=== PATIENT | male | born 1965 | race Caucasian/White ===

== ENCOUNTER 2017-09-14 14:29 | Outpatient (CLI) ==
[2013-04-12 22:57] VITALS: TEMP 96.8
[2016-04-23 19:52] VITALS: BMI 38.0
--- NOTE | 2017-09-14 14:51 | DI ---
EXAM: Two views of the chest. History: Short of breath Comparison: Chest radiograph 01/24/2014 Findings: Heart size is normal. No focal consolidation. No appreciable pleural fluid and no pneumo thorax. No acute osseous abnormalities. Impression: No acute cardiopulmonary process
== END 2017-09-14 14:30 | disposition home or self-care (01) ==
LOC: RAD 14:29
PROVIDERS: ATTEND Family Medicine
DX: R06.02 Shortness of breath (principal)

== ENCOUNTER 2017-12-09 19:23 | Emergency (ER) ==
[2017-12-09] MEDS ORDERED: XOPENEX 1.25 MG NEB STA (19:26)
[2017-12-09 19:35] VITALS: TEMP 97.7; BMI 38.9
[2017-12-09 19:41] VITALS: BP 164/103
--- NOTE | 2017-12-09 21:13 | CT ---
EXAM: CT scan head without contrast. HISTORY: Dizziness COMPARISON: CT, 09/30/2013 TECHNIQUE: Axial scans acquired 5 mm slice thicknesses. FINDINGS: There is no subdural hematoma or intracranial hemorrhage seen. There is no shift of midli ne structures. Nickerson-white matter differentiation is maintained. Ventricles are normal in size. The mastoid air cells appear clear. Mucous retention cyst less likely polyp measuring 1.02 cm periphery left maxillary sinus. IMPRESSION: . No acute intracranial finding is seen No intracranial hemorrhage, CVA, mass or hydrocephalus is seen.
--- NOTE | 2017-12-09 21:14 | CT ---
EXAM: CTA chest for PE HISTORY: Dyspnea with cough and chest pain COMPARISON: Multiple chest x-rays most recent 09/14/2017 TECHNIQUE: CTA of the chest was performed from the lung apices to the upper abdomen after 100 ml of Omnipaque IV contrast was administered using PE protocol. 3-D imaging was also provided. FINDINGS: Poor bolus timing limits this evaluation. There is no central filling defect in the pulmo nary arteries to the proximal segmental level. The distal pulmonary arteries are not well opacified. The aorta is unremarkable. The heart is unremarkable with no pericardial fluid. There are no enla rged mediastinal or hilar lymph nodes. The thyroid is normal. There is no pneumothorax or pleural effusion. There is no consolidation, nodule or mass. The airway s are patent. There is minimal right basilar atelectasis. Limited views of the soft tissues in the upper abdomen are unremarkable. The osseous structures demo nstrate degenerative disease of the spine. IMPRESSION: 1. Limited evaluation due to poor bolus timing with no central pulmonary embolism. 2. No acute consolidation or cardiopulmonary process.
--- NOTE | 2017-12-09 21:24 | ED.PDOC ---
General ED Provider: Dr. RIGO MERCADO-ER Chief Complaint: Shortness of Air Stated Complaint: im coughing and sob Time Seen by Physician: 21:23 Mode of Arrival: Walk-In Information Source: Patient Exam Limitations: No limitations Primary Care Provider: RIGO MERCADO Nursing and Triage Documentation Reviewed and Agree: Yes Reviewed sepsis parameters & appropriate labs ordered?: Yes System Inflammatory Response Syndrome: Not Applicable Sepsis Protocol: For patient's 13 years and over: Temp is 96.8 and below OR 101 and greater Pulse >90 BPM Resp >20/minute Acutely Altered Mental Status Are patient's symptoms suggestive of a new infection, such as: -Pneumonia -Skin, Soft Tissue -Endocarditis -UTI -Bone, Joint Infection -Implantable Device -Acute Abdominal Infection -Wound Infection -Meningitis -Blood Stream Catheter Infection -Unknown Respiratory Complaint Exam - Respiratory Complaint/Exam Onset/Duration: 2 days Symptoms Are: Still present Timing: Intermittent Initial Severity: Mild Current Severity: Mild Character: Reports: Non-productive cough Aggravating: Reports: URI, Passive smoke exposure Alleviating: Reports: Bronchodilators Associated Signs and Symptoms: Reports: Dyspnea, URI, Nasal congestion. Denies : Rapid breathing, Fever, Chills, Chest pain, Pleuritic chest pain, Wheezing, Hemoptysis, Dizziness, Calf pain, Calf swelling, Edema, Hoarseness, Sinus discomfort, Vomiting, Sore throat, Weight loss, Decreased oral intake, Increased thirst, Increased appetite, Increased urination Related History: Reports: Similar episode History of Healthcare-Acquired Pneumonia: No Related Surgical History: Reports: None Pulmonary Embolism Risk Factors: None Cardiac Risk Factors: Reports: Smoking Pseudomonas Risk Factors: Reports: Chronic Lung Disease Home Oxygen Use: No Recent Stress Test: No Recent Echo/LV Function: No Current Antibiotic Use: No Current Asthma Medication Use: No Respiratory Distress: None Inadequate Respiratory Effort: No Dysphagia Present: No Stridor Present: No JVD Present: No Accessory Muscle Use: No Diminished Breath Sounds: No Sinus Tenderness: None Grunting Respirations: No Kussmaul Respirations: No Differential Diagnoses: COPD Exacerbation Review of Systems - Review Of Systems Constitutional: Reports: No symptoms Eyes: Reports: No symptoms Ears, Nose, Mouth, Throat: Reports: No symptoms Respiratory: Reports: Cough, Short of air Cardiac: Reports: No symptoms GI: Reports: No symptoms : Reports: No symptoms Musculoskeletal: Reports: No symptoms Skin: Reports: No symptoms Neurological: Reports: No symptoms Endocrine: Reports: No symptoms Hematologic/Lymphatic: Reports: No symptoms All Other Systems: Reviewed and Negative Past Medical History - Past Medical History Previously Healthy: Yes Endocrine: Reports: None Cardiovascular: Reports: None Respiratory: Reports: None Hematological: Reports: None Gastrointestinal: Reports: None Genitourinary: Reports: None Neuro/Psych: Reports: Bipolar Disorder Musculoskeletal: Reports: Arthritis, Joint Pain Cancer: Reports: None - Surgical History General Surgical History: Reports: Unknown (rt knee replacement) - Family History Family History: Reports: Unknown - Social History Smoking Status: Current every day smoker, Light tobacco smoker, Dips snuff Hx Substance Use: Yes (carol ann) Alcohol Screening: Occasionally - Immunizations Tetanus Shot up to Date: Yes Physical Exam - Physical Exam Appearance: Well-appearing, No pain distress, Well-nourished Eyes: JORGE LUIS, EOMI, Conjunctiva clear ENT: Ears normal, Nose normal, Oropharynx normal Neck: Supple Respiratory: Breath sounds equal, Wheezes Cardiovascular: RRR GI/: Soft, Nontender, No masses, Bowel sounds normal, No Organomegaly Musculoskeletal: Normal strength, ROM intact, No edema, No calf tenderness Skin: Warm, Dry, Normal color Neurological: Sensation intact, Motor intact, Reflexes intact, Cranial nerves intact, Alert, Oriented Psychiatric: Affect appropriate, Mood appropriate, Anxious Interpretation - Radiology Interpretation Radiology Interpretation By: Radiologist Radiology Results: Negative Exam Interpreted: CT Scan - EKG Interpretation Time of EKG #1: 21:25 Rate: Normal Rhythm: Sinus Ectopy: None [place]: NL ST Segment: Normal Re-Evaluation - Re-Evaluation Time of Re-Evaluation: 21:25 Status: Improved Vital Signs Stable: Yes Pain Level: 0 Appearance: NAD Lungs: Clear Skin: Warm and Dry Neuro: Alert and Oriented X3 CV: RRR Critical Care Note - Critical Care Note Total Time (mins): 0 Course - Course Hematology/Chemistry: 12/09/17 19:36 12/09/17 19:36 Orders, Labs, Meds: Lab Review 12/09/1718 12/09/17 19:23 19:36 19:36 WBC 7.38 RBC 4.96 Hgb 15.2 Hct 43.9 MCV 88.5 MCH 30.6 MCHC 34.6 RDW Coeff of Kamila 13.6 Plt Count 247 Immature Gran % (Auto) 0.3 Neut % (Auto) 65.5 Lymph % (Auto) 26.6 [place] % (Auto) 4.9 Eos % (Auto) 1.8 Baso % (Auto) 0.9 Immature Gran # (Auto) 0.0 Neut # 4.8 Lymph # 2.0 Placer # 0.4 Eos # 0.1 Baso # 0.1 Puncture Site Lr O2 Saturation 99.0 ABG pH 7.557 H* ABG pCO2 23.2 L ABG pO2 112.0 H ABG HCO3 20.6 L ABG Total CO2 21 L ABG Base Excess -2 Brent Test + FiO2 % 21.0 Sodium 137 Potassium 3.3 L Chloride 103 Carbon Dioxide 24 Anion Gap 13.3 BUN 3 L Creatinine 1.04 Estimated GFR (MDRD) 75.00 BUN/Creatinine Ratio 2.88 Glucose 134 H Calcium 9.0 Total Bilirubin 0.6 AST 17 ALT 22 Alkaline Phosphatase 99 Total Creatine Kinase 76 Troponin I 0.0170 Total Protein 7.2 Albumin 3.3 L Globulin 3.9 Albumin/Globulin Ratio 0.85 Orders Category Date Time Status ABG DRAW REQUEST Stat CARDIO 12/09/17 19:24 Ordered EKG-(ED ONLY) Stat CARDIO 12/09/17 19:24 Ordered NEBULIZER TREATMENT Stat CARDIO 12/09/17 19:26 Ordered NPO REMINDER: IMAGING ONCE CARE 12/09/17 19:25 Completed 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] .ONCE EMERGENCY 12/09/17 19:26 Active ED IV/MEDIPORT/POWERPORT .ONCE EMERGENCY 12/09/17 19:24 Active ABG Stat LAB 12/09/17 19:23 Completed CBC W/ AUTO DIFF Stat LAB 12/09/17 19:36 Completed COMPREHENSIVE METABOLIC PANEL Stat LAB 12/09/17 19:36 Completed CREATINE KINASE Stat LAB 12/09/17 19:36 Completed TROPONIN I Stat LAB 12/09/17 19:36 Completed 0.9 % Sodium Chloride [Saline Flush] MEDS 12/09/17 19:24 Ordered 1 syr IVF PRN PRN Levalbuterol HCl [Xopenex 1.25 mg] MEDS 12/09/17 19:26 Discontinued 1 vial NEB ONCE STA CT CHEST PE PROTOCOL Stat RADS 12/09/17 19:[address] HEAD W/O CONTRAST Stat RADS 12/09/17 19:24 Completed Medications Generic Name Dose Route Start Last Admin Trade Name Freq PRN Reason Stop Dose Admin Sodium Chloride 1 syr 12/09/17 19:24 12/09/17 20:15 Saline Flush IVF 1 syr PRN PRN Administration To flush IV Discontinued Medications Generic Name Dose Route Start Last Admin Trade Name Freq PRN Reason Stop Dose Admin Levalbuterol HCl 1 vial 12/09/17 19:26 Xopenex 1.25 Mg NEB 12/09/17 19:27 ONCE STA Vital Signs: Temp Pulse Resp BP Pulse Ox 12/09/17 19:40 25 H 164/103 H 99 12/09/17 19:28 97.7 F 67 32 H 169/94 H 100 Departure - Departure Time of Disposition: 21:26 Disposition: HOME SELF-CARE Discharge Problem: COPD exacerbation Instructions: COPD (Chronic Obstructive Pulmonary Disease) (ED), How to Stop Smoking (ED) Condition: Good Pt referred to PMD for follow-up: Yes IPMP verified?: No Additional Instructions: lashonda barkley --stop smoking--f/u with me next week Allergies/Adverse Reactions: Allergies No Known Drug Allergies Adverse Reaction (Verified 12/09/17 19:40) Home Medications: Ambulatory Orders Citalopram Hydrobromide [Celexa] 20 mg PO BEDTIME #30 04/09/17 Albuterol Sulfate [Ventolin Hfa] 18 gm IH DIRECTED PRN 12/09/17 Budesonide/Formoterol Fumarate [Symbicort 160-4.5 Mcg Inhaler] 2 puff IH BID Methylprednisolone [Medrol Dosepak] 4 mg PO DIRECTED 12/09/17 Disposition Discussed With: Patient, Family
== END 2017-12-09 21:34 | disposition home or self-care (01) ==
LOC: ED 19:23
DX: J44.1 Chronic obstructive pulmonary disease with (acute) exacerbation (principal); F17.210 Nicotine dependence, cigarettes, uncomplicated; R06.02 Shortness of breath
CPT/HCPCS: 36415; 80053; 82550; 82803; 84484; 85025; 93005; 93010; 94640; 99283

== ENCOUNTER 2018-06-14 14:30 | Emergency (ER) | payer OTHER ==
[2018-06-14 14:37] VITALS: TEMP 97.8; BMI 39.9
[2018-06-14] MEDS ORDERED: ZESTRIL PO STA ×3 (15:10→18:30)
[2018-06-14] MEDS ORDERED: CARDENE-NACL 20 MG/200 ML SOLN 20 MG in PREMIX 200ML 0.86% SODIUM CHLORIDE 1 BAG IV SCH (18:30)
--- NOTE | 2018-06-14 18:33 | ED.PDOC ---
General Stated Complaint: hypertension Time Seen by Physician: 14:31 (pt's blood pressure qas 180/100 prior to arrival) Mode of Arrival: Walk-In Information Source: Patient Referred to ED by: Other (the pt has denied chest pain through out the day and arrived pain free ) Nursing and Triage Documentation Reviewed and Agree: Yes Does patient meet sepsis criteria?: No If yes, has appropriate treatment been initiated?: No System Inflammatory Response Syndrome: Not Applicable <JOSEY JARA - Last Filed: 06/14/18 18:35> <KRISTOPHER TAYLOR - Last Filed: 06/14/18 19:21> ED Provider: Dr. KRISTOPHER TAYLOR Chief Complaint: Hypertension Primary Care Provider: RIGO MERCADO Sepsis Protocol: For patient's 13 years and over: Temp is 96.8 and below OR 101 and greater Pulse >90 BPM Resp >20/minute Acutely Altered Mental Status Are patient's symptoms suggestive of a new infection, such as: -Pneumonia -Skin, Soft Tissue -Endocarditis -UTI -Bone, Joint Infection -Implantable Device -Acute Abdominal Infection -Wound Infection -Meningitis -Blood Stream Catheter Infection -Unknown Cardiovascular Complaint Exam - Hypertension Complaint/Exam Onset/Duration: today Symptoms Are: Still present Timing: Constant Reported B/P Prior to Arrival: 180/110 no chest pain no shortness of breath Aggravating: Reports: None Alleviating: Reports: None Associated Signs and Symptoms: Reports: Headache. Denies: Chest pain, Vision changes, Anxiety, Recent stress, Numbness, Tingling, Weakness, Dizziness, Short of air, Swelling Related History: Reports: Similar episode Related Surgical History: Reports: None Cardiac Risk Factors: Reports: None Recent Change in Medications: No A/V [place]: No Papilledema Present: No JVD Present: No Carotid Bruit Present: No Femoral Pulses Bounding: No Differential Diagnoses: Hypertension, Hypertensive Urgency Quality Indicator For Non-Traumatic Chest Pain/Syncope: EKG Performed <JOSEY JARA - Last Filed: 06/14/18 18:35> Review of Systems - Review Of Systems Constitutional: Reports: No symptoms Eyes: Reports: No symptoms Ears, Nose, Mouth, Throat: Reports: No symptoms Respiratory: Reports: No symptoms Cardiac: Reports: No symptoms GI: Reports: No symptoms : Reports: No symptoms Musculoskeletal: Reports: No symptoms Skin: Reports: No symptoms Neurological: Reports: Headache Endocrine: Reports: No symptoms Hematologic/Lymphatic: Reports: No symptoms All Other Systems: Reviewed and Negative <JOSEY JARA Last Filed: 06/14/18 18:35> Past Medical History - Past Medical History Previously Healthy: Yes Endocrine: Reports: None Cardiovascular: Reports: None Respiratory: Reports: None Hematological: Reports: None Gastrointestinal: Reports: None Genitourinary: Reports: None Neuro/Psych: Reports: Bipolar Disorder Musculoskeletal: Reports: Arthritis, Joint Pain Cancer: Reports: None - Surgical History General Surgical History: Reports: Unknown (rt knee replacement) - Family History Family History: Reports: Unknown - Social History Smoking Status: Current some day smoker, Light tobacco smoker, Dips snuff Hx Substance Use: Yes (carol ann) Alcohol Screening: None <JOSEY JARA Last Filed: 06/14/18 18:35> Physical Exam - Physical Exam Appearance: Well-appearing, No pain distress, Well-nourished Eyes: JORGE LUIS, EOMI, Conjunctiva clear ENT: Ears normal, Nose normal, Oropharynx normal Respiratory: Airway patent, Breath sounds clear, Breath sounds equal, Respirations nonlabored Cardiovascular: RRR, Pulses normal, No rub, No murmur GI/: Soft, Nontender, No masses, Bowel sounds normal, No Organomegaly Musculoskeletal: Normal strength, ROM intact, No edema, No calf tenderness Skin: Warm, Dry, Normal color Neurological: Sensation intact, Motor intact, Reflexes intact, Cranial nerves intact, Alert, Oriented Psychiatric: Affect appropriate, Mood appropriate <JOSEY JARA Last Filed: 06/14/18 18:35> Interpretation - Fun House Operator Rate: Roly Rhythm: Sinus - EKG Interpretation Rate: Roly Rhythm: Sinus Ectopy: None [place]: NL ST Segment: Normal <JOSEY JARA Last Filed: 06/14/18 18:35> Re-Evaluation - Re-Evaluation Time of Re-Evaluation: 16:00 Status: Unchanged Vital Signs Stable: Yes Pain Level: 0 Appearance: NAD Lungs: Clear Skin: Warm and Dry Neuro: Alert and Oriented X3 CV: RRR - Re-Evaluation Time of Re-Evaluation: 18:35 (160-170/108) Status: Improved Vital Signs Stable: Yes Pain Level: 0 Appearance: NAD Skin: Warm and Dry Neuro: Alert and Oriented X3 CV: RRR (HAS REMAINED FREE OF CHEST PAIN NO ACUTE EVENT) <JOSEY JARA - Last Filed: 06/14/18 18:35> Physician Notification - Case Discussed Physician Notified: henrry SCHULTZ Time of Notification: 19:00 <JOSEY JARA - Last Filed: 06/14/18 18:35> Critical Care Note - Critical Care Note Total Time (mins): 0 <JOSEY JARA - Last Filed: 06/14/18 18:35> Course - Course Hematology/Chemistry: 06/14/18 15:13 06/14/18 15:13 <JOSEY JARA - Last Filed: 06/14/18 18:35> - Course Hematology/Chemistry: 06/14/18 15:13 06/14/18 15:13 <KRISTOPHER TAYLOR - Last Filed: 06/14/18 19:21> - Course Orders, Labs, Meds: Lab Review 06/14/18 06/14/18 06/14/18 15:13 15:13 15:13 WBC 5.71 RBC 4.57 L Hgb 14.2 Hct 41.5 L MCV 90.8 MCH 31.1 H MCHC 34.2 RDW Coeff of Kamila 13.2 Plt Count 217 Immature Gran % (Auto) 0.4 Neut % (Auto) 67.1 Lymph % (Auto) 25.0 [place] % (Auto) 3.2 Eos % (Auto) 3.2 Baso % (Auto) 1.1 Immature Gran # (Auto) 0.0 Neut # (Auto) 3.8 Lymph # (Auto) 1.4 [place] # (Auto) 0.2 L Eos # (Auto) 0.2 Baso # (Auto) 0.1 Sodium 135 L Potassium 3.4 L Chloride 100 Carbon Dioxide 27 Anion Gap 11.4 BUN 4 L Creatinine 1.16 H Estimated GFR (MDRD) 66.00 BUN/Creatinine Ratio 3.44 Glucose 187 H Calcium 9.2 Total Bilirubin 0.5 AST 30 ALT 41 Alkaline Phosphatase 93 Total Creatine Kinase 99 Troponin I < 0.0100 Total Protein 6.9 Albumin 3.3 L Globulin 3.6 Albumin/Globulin Ratio 0.92 Orders Category Date Time Status EKG-(ED ONLY) Stat CARDIO 06/14/18 17:11 Completed CBC W/ AUTO DIFF Stat LAB 06/14/18 15:13 Completed COMPREHENSIVE METABOLIC PANEL Stat LAB 06/14/18 15:13 Completed CREATINE KINASE Stat LAB 06/14/18 15:13 Completed TROPONIN I Stat LAB 06/14/18 15:13 Completed 0.9 % Sodium Chloride [Premix 200Ml 0.86% Sodium MEDS 06/14/18 18:30 Ordered Chloride] 1 bag Nicardipine in NaCl, Iso-Osm [Cardene-NaCl 20 mg/200 ml Soln] 20 mg IV 5 mg/hr Lisinopril [Zestril] MEDS 06/14/18 15:10 Discontinued 10 mg PO ONCE STA Lisinopril [Zestril] MEDS 06/14/18 18:30 Discontinued 10 mg PO ONCE STA Lisinopril [Zestril] MEDS 06/14/18 16:15 Discontinued 20 mg PO ONCE STA Medications Generic Name Dose Route Start Last Admin Trade Name Freq PRN Reason Stop Dose Admin Nicardipine/Sodium Chloride 20 200 mls @ 50 mls/hr 06/14/18 18:30 mg/ Sodium Chloride IV .Q4H SARKIS Protocol 5 MG/HR Discontinued Medications Generic Name Dose Route Start Last Admin Trade Name Freq PRN Reason Stop Dose Admin Lisinopril 10 mg 06/14/18 15:10 06/14/18 15:21 Zestril PO 06/14/18 15:11 10 mg ONCE STA Administration Lisinopril 20 mg 06/14/18 16:15 06/14/18 16:19 Zestril PO 06/14/18 16:16 20 mg ONCE STA Administration Lisinopril 10 mg 06/14/18 18:30 Zestril PO 06/14/18 18:31 ONCE STA Vital Signs: Temp Pulse Resp BP Pulse Ox 06/14/18 19:05 64 162/97 H 98 06/14/18 18:21 62 16 159/116 H 98 06/14/18 17:30 59 L 16 182/113 H 98 06/14/18 17:01 63 17 185/125 H 98 06/14/18 14:31 97.8 F 72 20 177/110 H 96 NU Risk Score: Risk Score Odds of by 30D 0 0.1 (0.1-0.2) 1 0.3 (0.2-0.3) 2 0.4 (0.3-0.5) 3 0.7 (0.6-0.9) 4 1.2 (1.0-1.5) 5 2.2 (1.9-2.6) 6 3.0 (2.5-3.6) 7 4.8 (3.8-6.1) Departure - Departure Pt referred to PMD for follow-up: Yes IPMP verified?: No Disposition Discussed With: Patient, Family <JOSEY JARA - Last Filed: 06/14/18 18:35> - Departure Time of Disposition: 19:20 <KRISTOPHER TAYLOR - Last Filed: 06/14/18 19:21> - Departure Disposition: HOME SELF-CARE Discharge Problem: Hypertension Qualifiers: Hypertension type: unspecified Qualified Code(s): I10 - Essential (primary) hypertension Instructions: Hypertension (ED) Condition: Good Additional Instructions: Please call your Family Physician as soon as possible to schedule a follow-up appointment. Prescriptions: Lisinopril 20 mg PO BID #20 tablet Allergies/Adverse Reactions: Allergies No Known Drug Allergies Adverse Reaction (Verified 06/14/18 14:38) Home Medications: Ambulatory Orders Citalopram Hydrobromide [Celexa] 20 mg PO BEDTIME #30 04/09/17 Albuterol Sulfate [Ventolin Hfa] 18 gm IH DIRECTED PRN 12/09/17 Budesonide/Formoterol Fumarate [Symbicort 160-4.5 Mcg Inhaler] 2 puff IH BID Diclofenac Sodium 25 mg PO TID 06/14/18 Lisinopril 20 mg PO BID #20 tablet 06/14/18
[2018-06-14 19:06] VITALS: BP 162/97
== END 2018-06-14 19:25 | disposition home or self-care (01) ==
LOC: ED 14:30
DX: I10 Essential (primary) hypertension (principal); R51 Headache; F17.210 Nicotine dependence, cigarettes, uncomplicated
CPT/HCPCS: 36415; 80053; 82550; 84484; 85025; 93005; 93010; 99284

== ENCOUNTER 2018-07-08 17:28 | Emergency (ER) ==
[2018-07-08 17:29] VITALS: BMI 39.9
[2018-07-08 17:33] VITALS: BP 145/88; TEMP 98.8
--- NOTE | 2018-07-08 18:21 | ED.PDOC ---
General ED Provider: Dr. RIGO OWEN Chief Complaint: Non-specific Complaint Stated Complaint: Excessive sleepiness. Smoked "weed" last night. Mother states he has this problem daily and constantly nervous. Remains on citalopram and haldol. States smoked weed to relax. States smokes infrequently Time Seen by Physician: 17:45 Mode of Arrival: Walk-In Information Source: Patient Exam Limitations: No limitations Primary Care Provider: RIGO MOSQUERA Nursing and Triage Documentation Reviewed and Agree: Yes Does patient meet sepsis criteria?: No If yes, has appropriate treatment been initiated?: No System Inflammatory Response Syndrome: Not Applicable Sepsis Protocol: For patient's 13 years and over: Temp is 96.8 and below OR 101 and greater Pulse >90 BPM Resp >20/minute Acutely Altered Mental Status Are patient's symptoms suggestive of a new infection, such as: -Pneumonia -Skin, Soft Tissue -Endocarditis -UTI -Bone, Joint Infection -Implantable Device -Acute Abdominal Infection -Wound Infection -Meningitis -Blood Stream Catheter Infection -Unknown Neurological Complaint Exam - Syncope/Near Syncope Complaint/Exam Onset/Duration: today Number of Episodes: States sits down in chair and falls asleep easily. no witnessed LOC Episodes Witnessed: No Loss of Consciousness: No Associated Head Trauma: No Activity at Onset: At rest Aggravating: None Alleviating: Reports: Spontaneous resolution Associated Signs and Symptoms: Reports: Lightheadedness. Denies: Pain, Decreased oral intake, Vomiting, Diarrhea, GI blood loss, Short of air, Chest pain, Palpitations, Diaphoresis, Dizziness, Weakness, AMS, Numbness, Headache, Seizure, Remote head trauma, Recent head trauma Cardiac Risk Factors: Reports: Hypertension GI Bleed Risk Factors: Reports: None Dysrhythmia Risk Factors: Reports: >45 years old Related Surgical History: Reports: None JVD Present: No Carotid Bruit Present: No Nystagmus Present: No Gag Reflex Present: Yes Meningeal Signs Positive: No Focal Weakness: Present: None Focal Sensory Loss: Present: None Gait: Normal [id number]: Normal Findings Romberg Test Positive: No Heel to Toe Normal: Yes Review of Systems - Review Of Systems Constitutional: Reports: No symptoms Eyes: Reports: No symptoms Ears, Nose, Mouth, Throat: Reports: No symptoms Respiratory: Reports: No symptoms, Orthopnea, Short of air Cardiac: Reports: No symptoms GI: Reports: No symptoms : Reports: No symptoms Musculoskeletal: Reports: No symptoms Skin: Reports: No symptoms Neurological: Reports: No symptoms, Anxiety, Depressed, Emotional problems Endocrine: Reports: No symptoms Hematologic/Lymphatic: Reports: No symptoms All Other Systems: Reviewed and Negative Past Medical History - Past Medical History Previously Healthy: Yes Endocrine: Reports: None Cardiovascular: Reports: None Respiratory: Reports: None Hematological: Reports: None Gastrointestinal: Reports: None Genitourinary: Reports: None Neuro/Psych: Reports: Bipolar Disorder Musculoskeletal: Reports: Arthritis, Joint Pain Cancer: Reports: None - Surgical History General Surgical History: Reports: Unknown (rt knee replacement) - Family History Family History: Reports: Unknown - Social History Smoking Status: Current some day smoker, Light tobacco smoker, Dips snuff Hx Substance Use: Yes (carol ann) Alcohol Screening: None Physical Exam - Physical Exam Appearance: No pain distress, Obese Ill-appearing: None Pain Distress: None Eyes: JORGE LUIS, EOMI, Conjunctiva clear ENT: Ears normal, Nose normal, Oropharynx normal Neck: Supple Respiratory: Airway patent, Breath sounds clear, Breath sounds equal, Respirations nonlabored Cardiovascular: RRR GI/: Soft (obese), Nontender, No masses, No Organomegaly Musculoskeletal: Normal strength, ROM intact, No edema, No calf tenderness Skin: Warm, Dry, Normal color Neurological: Sensation intact, Motor intact, Reflexes intact, Cranial nerves intact, Alert, Oriented, Disoriented Psychiatric: Affect appropriate, Mood appropriate, Anxious Interpretation - Radiology Interpretation Radiology Interpretation By: ED Physician Radiology Results: No acute changes - EKG Interpretation Time of EKG #1: 18:25 Rate: Normal Rhythm: Sinus Ectopy: None ST Segment: Normal EKG Comparison: No significant changes Critical Care Note - Critical Care Note Total Time (mins): 0 Course - Course Hematology/Chemistry: 07/08/18 18:32 07/08/18 18:32 Orders, Labs, Meds: Lab Review 07/08/18 07/08/18 07/08/18 18:32 18:32 18:38 WBC 8.00 RBC 4.69 L Hgb 14.8 Hct 40.9 L MCV 87.2 MCH 31.6 H MCHC 36.2 H RDW Coeff of Kamila 12.7 Plt Count 227 Immature Gran % (Auto) 0.4 Neut % (Auto) 64.4 Lymph % (Auto) 25.5 [place] % (Auto) 7.1 Eos % (Auto) 1.6 Baso % (Auto) 1.0 Immature Gran # (Auto) 0.0 Neut # (Auto) 5.2 Lymph # (Auto) 2.0 [place] # (Auto) 0.6 Eos # (Auto) 0.1 Baso # (Auto) 0.1 Puncture Site L rad O2 Saturation 98.0 ABG pH 7.531 H* ABG pCO2 30.9 L ABG pO2 90.0 ABG HCO3 25.8 ABG Total CO2 27 ABG Base Excess 3 H Brent Test + FiO2 % 21.0 Sodium 130.7 L Potassium 3.06 L Chloride 93.7 L Carbon Dioxide 26.4 Anion Gap 13.66 BUN 20.2 H Creatinine 1.81 H Estimated GFR (MDRD) 40.00 BUN/Creatinine Ratio 11.16 Glucose 105.1 Calcium 10.06 Total Bilirubin 0.54 AST 37.3 ALT 38.8 Alkaline Phosphatase 83.2 Total Protein 7.59 Albumin 4.16 Globulin 3.43 Albumin/Globulin Ratio 1.21 Orders Category Date Time Status ABG DRAW REQUEST Stat CARDIO 07/08/18 18:19 Ordered EKG-(ED ONLY) Stat CARDIO 07/08/18 18:17 Ordered ABG Stat LAB 07/08/18 18:38 Completed CBC W/ AUTO DIFF Stat LAB 07/08/18 18:32 Completed CMP [COMPREHENSIVE METABOLIC PANEL] Stat LAB 07/08/18 18:32 Completed UA [URINALYSIS C & S IF INDICATED] Stat LAB 07/08/18 18:19 Uncollected URINE DRUG SCREEN (RAPID FOR ED) [DRUG SCREEN, URINE, LAB 07/08/18 18:19 Uncollected RAPID] Stat Potassium Chloride [K-Dur] MEDS 07/08/18 18:58 Stat 20 meq PO ONCE STA CHEST, 1V AP ONLY Stat RADS 07/08/18 18:16 Taken Medications Discontinued Medications Generic Name Dose Route Start Last Admin Trade Name Freq PRN Reason Stop Dose Admin Potassium Chloride 20 meq 07/08/18 18:58 K-Dur PO 07/08/18 18:59 ONCE STA Vital Signs: Temp Pulse Resp BP Pulse Ox 07/08/18 17:29 98.8 F 66 20 145/88 H 96 Departure - Departure Time of Disposition: 19:10 Disposition: HOME SELF-CARE Discharge Problem: COPD (chronic obstructive pulmonary disease), Sleep apnea, Substance abuse, Morbid obesity, Hypokalemia, Hyponatremia Instructions: Hypokalemia (ED), Cannabis Abuse (ED), Sleep Apnea (DC) Condition: Fair Pt referred to PMD for follow-up: Yes (see Dr Mosquera next week , have electrolyes rechecked) IPMP verified?: No Additional Instructions: Stay on maintenance meds Take supplemental potassium until follow up with PCP next week Avoid Cannabis use Prescriptions: Potassium Chloride [K-Dur] 20 meq PO DAILY #4 tab Allergies/Adverse Reactions: Allergies No Known Drug Allergies Adverse Reaction (Verified 07/08/18 17:34) Home Medications: Ambulatory Orders Citalopram Hydrobromide [Celexa] 20 mg PO BEDTIME #30 04/09/17 Albuterol Sulfate [Ventolin Hfa] 18 gm IH DIRECTED PRN 12/09/17 Budesonide/Formoterol Fumarate [Symbicort 160-4.5 Mcg Inhaler] 2 puff IH BID Diclofenac Sodium 25 mg PO TID 06/14/18 Lisinopril 20 mg PO BID #20 tablet 06/14/18 Hydrochlorothiazide 12.5 mg PO DAILY 07/08/18 Potassium Chloride [K-Dur] 20 meq PO DAILY #4 tab 07/08/18 Disposition Discussed With: Patient, Family Respiratory Complaint Exam - Respiratory Complaint/Exam Symptoms Are: Still present Timing: Constant Initial Severity: Moderate Current Severity: Moderate Location: Chest Character: Denies: Productive cough, Non-productive cough, Barking cough Aggravating: Reports: Recumbent position Alleviating: Reports: Bronchodilators Associated Signs and Symptoms: Reports: Dyspnea (hx sleep apnea /poorly fitting device) Related History: Reports: Similar episode Pulmonary Embolism Risk Factors: None Cardiac Risk Factors: Reports: Hypertension Pseudomonas Risk Factors: Reports: None Tuberculosis Risk Factors: Reports: None Status Asthmaticus Risk Factors: Reports: None Home Oxygen Use: No Recent Stress Test: No Recent Echo/LV Function: No Current Antibiotic Use: No Current Asthma Medication Use: No Respiratory Distress: None Inadequate Respiratory Effort: No Dysphagia Present: No Stridor Present: No JVD Present: No
[2018-07-08] MEDS ORDERED: K-DUR PO STA (18:58)
--- NOTE | 2018-07-09 07:53 | DI ---
Exam: Single view of the chest. Comparison: CT PE protocol performed 12/09/2017. Reason for exam: Short of breath. FINDINGS: No pneumothorax, pleural effusion, or focal consolidation. The cardiac silhouette is not enlarged. Patchy airspace opacities are seen in the left lung base. Impression: Patchy airspace opacities in the left lower lobe likely accentuated by summation shadowing. If clini mandeep concern exists, two-view chest x-ray may be performed for further characterization.
== END 2018-07-08 19:20 | disposition home or self-care (01) ==
LOC: ED 17:28
DX: J44.9 Chronic obstructive pulmonary disease, unspecified (principal); G47.30 Sleep apnea, unspecified; F12.10 Cannabis abuse, uncomplicated; E66.01 Morbid (severe) obesity due to excess calories; E87.6 Hypokalemia; E87.1 Hypo-osmolality and hyponatremia; G47.10 Hypersomnia, unspecified; R06.02 Shortness of breath; R42 Dizziness and giddiness; I10 Essential (primary) hypertension; F17.210 Nicotine dependence, cigarettes, uncomplicated; Z79.899 Other long term (current) drug therapy
CPT/HCPCS: 36415; 80053; 80306; 81001; 82803; 85025; 93005; 93010; 99283

== ENCOUNTER 2019-09-25 02:30 | Inpatient (IN) ==
[2019-09-25 02:44] VITALS: BMI 39.8
[2019-09-25] MEDS ORDERED: SODIUM CHLORIDE 1,000 ML IV STA (02:45)
[2019-09-25] MEDS ORDERED: XOPENEX 1.25 MG NEB STA (02:45)
[2019-09-25] MEDS ORDERED: DUONEB NEB STA (02:45)
--- NOTE | 2019-09-25 04:49 | CT ---
EXAM: CTA chest HISTORY: Dyspnea COMPARISON: CT scan chest 10/01/18 FINDINGS: Contiguous axial images were obtained through the thorax following intravenous contrast ut ilizing 3-mm collimation . Sagittal and coronal reconstructions were imaged and reviewed. Source im ages were utilized create rotating 3-D MIP images.. The thoracic inlet is unremarkable. The heart i s normal in size without pericardial effusion. There is no evidence of hilar or mediastinal lymphade nopathy. There is suboptimal opacification of the pulmonary arteries without central embolus.. Ther e is minimal atelectasis at the right lung base. Visualized upper abdominal structures are unremarka ble. Bone windows reveals degenerative changes within the mid and lower thoracic spine. IMPRESSION: Suboptimal opacification of the pulmonary arteries without central embolus. Mild right basilar atelectasis.
--- NOTE | 2019-09-25 04:58 | ED.PDOC ---
General ED Provider: Dr. RIGO DOMINGUEZ Chief Complaint: Shortness of Air Stated Complaint: leandro been sob all week,coughing up thick sputum Time Seen by Physician: 04:57 Mode of Arrival: Walk-In Information Source: Patient Primary Care Provider: RIGO MERCADO Nursing and Triage Documentation Reviewed and Agree: Yes Does patient meet sepsis criteria?: No System Inflammatory Response Syndrome: Not Applicable Sepsis Protocol: For patient's 13 years and over: Temp is 96.8 and below OR 101 and greater Pulse >90 BPM Resp >20/minute Acutely Altered Mental Status Are patient's symptoms suggestive of a new infection, such as: -Pneumonia -Skin, Soft Tissue -Endocarditis -UTI -Bone, Joint Infection -Implantable Device -Acute Abdominal Infection -Wound Infection -Meningitis -Blood Stream Catheter Infection -Unknown Respiratory Complaint Exam Respiratory Complaint/Exam Onset/Duration: im sob Symptoms Are: Still present Timing: Constant and Intermittent Initial Severity: Mild Current Severity: Moderate Location: Chest Character: Reports Productive cough Alleviating: Reports Bronchodilators Associated Signs and Symptoms: Reports Dyspnea and URI Home Oxygen Use: No Recent Stress Test: No Recent Echo/LV Function: No Current Antibiotic Use: No Current Asthma Medication Use: No Respiratory Distress: None Inadequate Respiratory Effort: No Dysphagia Present: No Stridor Present: No JVD Present: No Accessory Muscle Use: No Retractions: Not Present Diminished Breath Sounds: No Sinus Tenderness: None Grunting Respirations: No Kussmaul Respirations: No Differential Diagnoses: Pulmonary Edema, COPD Exacerbation and Pneumonia Review of Systems Review Of Systems Constitutional: Reports No symptoms Eyes: Reports No symptoms Ears, Nose, Mouth, Throat: Reports No symptoms Respiratory: Reports Cough, Short of air and Wheezing Cardiac: Reports No symptoms GI: Reports No symptoms : Reports No symptoms Musculoskeletal: Reports No symptoms Skin: Reports No symptoms Neurological: Reports No symptoms Endocrine: Reports No symptoms Hematologic/Lymphatic: Reports No symptoms All Other Systems: Reviewed and Negative [facility] Social History Smoking and tobacco status: Current some day smoker Physical Exam Physical Exam Appearance: Well-appearing Ill-appearing: None Pain Distress: None Eyes: JORGE LUIS, EOMI and Conjunctiva clear ENT: Ears normal, Nose normal and Oropharynx normal Neck: Supple Respiratory: Breath sounds equal, Breath sounds diminished and Wheezes Cardiovascular: RRR and Pulses normal GI/: Soft Musculoskeletal: Normal strength Skin: Warm and Dry Neurological: Sensation intact Psychiatric: Affect appropriate, Mood appropriate and Anxious Interpretation Radiology Interpretation Radiology Interpretation By: Radiologist Radiology Results: Positive Exam Interpreted: CT Scan EKG Interpretation Time of EKG #1: 04:56 Rhythm: Sinus Ectopy: None [place]: NL ST Segment: Other Interpretation: nsr Critical Care Note Critical Care Note Total Time (mins): 0 Course Course Hematology/Chemistry: 09/25/19 03:21 09/25/19 03:21 Orders, Labs, Meds: Lab Review 09/25/19 09/25/19 09/25/19 02:42 03:21 03:21 WBC 8.49 RBC 4.90 Hgb 15.2 Hct 45.4 MCV 92.7 MCH 31.0 MCHC 33.5 RDW Coeff of Kamila 13.2 Plt Count 243 Immature Gran % (Auto) 0.2 Neut % (Auto) 61.0 Lymph % (Auto) 26.7 [place] % (Auto) 7.9 Eos % (Auto) 3.1 Baso % (Auto) 1.1 Immature Gran # (Auto) 0.0 Neut # (Auto) 5.2 Lymph # (Auto) 2.3 [place] # (Auto) 0.7 Eos # (Auto) 0.3 Baso # (Auto) 0.1 Puncture Site Lrad O2 Saturation 79.0 L ABG pH 7.405 ABG pCO2 42.9 ABG pO2 43.0 L* ABG HCO3 26.9 H ABG Total CO2 28 ABG Base Excess 2 Brent Test + FiO2 % 21.0 Sodium 135.7 Potassium 4.41 Chloride 99.6 Carbon Dioxide 30.5 H Anion Gap 10.01 BUN 8.9 L Creatinine 0.84 Estimated GFR (MDRD) 95.00 BUN/Creatinine Ratio 10.59 Glucose 86.1 Calcium 9.11 Total Bilirubin 0.66 AST 25.0 ALT 18.7 Alkaline Phosphatase 95.3 Total Creatine Kinase 82.9 Troponin I < 0.012 NT-Pro-B Natriuret Pep 26.900 Total Protein 7.68 Albumin 4.19 Globulin 3.49 Albumin/Globulin Ratio 1.20 Orders Category Date Time Status ABG DRAW REQUEST Stat CARDIO 09/25/19 02:43 Completed EKG-(ED ONLY) Stat CARDIO 09/25/19 02:42 Completed NEBULIZER TREATMENT Stat CARDIO 09/25/19 02:45 Completed NPO REMINDER: IMAGING ONCE CARE 09/25/19 02:44 Completed ED ICU CLERK APPLIED .ONCE EMERGENCY 09/25/19 02:42 Active ED IV/MEDIPORT/POWERPORT .ONCE EMERGENCY 09/25/19 02:43 Active ABG Stat LAB 09/25/19 02:42 Completed CBC W/ AUTO DIFF Stat LAB 09/25/19 03:21 Completed COMPREHENSIVE METABOLIC PANEL Stat LAB 09/25/19 03:21 Completed CREATINE KINASE Stat LAB 09/25/19 03:21 Completed NT-PROBNP Stat LAB 09/25/19 03:21 Completed TROPONIN I Stat LAB 09/25/19 03:21 Completed 0.9 % Sodium Chloride [Saline Flush] MEDS 09/25/19 02:43 Active 1 syr IVF PRN PRN Ipratropium/Albuterol Neb [Duoneb] MEDS 09/25/19 02:45 Discontinued 3 ml NEB ONCE STA Levalbuterol HCl [Xopenex 1.25 mg] MEDS 09/25/19 02:45 Discontinued 1.25 mg NEB ONCE STA Sodium Chloride 0.9% [Sodium Chloride] 1,000 ml MEDS 09/25/19 02:45 Active IV 30 mls/hr CT CHEST PE PROTOCOL Stat RADS 09/25/19 02:43 Completed Medications Generic Name Dose Route Start Last Admin Trade Name Freq PRN Reason Stop Dose Admin Sodium Chloride 1,000 mls @ 30 mls/hr 09/25/19 02:45 09/25/19 03:33 Sodium Chloride IV 09/26/19 12:04 30 mls/hr .[id number] STA Administration Sodium Chloride 1 syr 09/25/19 02:43 09/25/19 03:32 Saline Flush IVF 1 syr PRN PRN Administration To flush IV Discontinued Medications Generic Name Dose Route Start Last Admin Trade Name Freq PRN Reason Stop Dose Admin Albuterol/Ipratropium 3 ml 09/25/19 02:45 09/25/19 03:30 Duoneb NEB 09/25/19 02:46 3 ml ONCE STA Administration Levalbuterol HCl 1.25 mg 09/25/19 02:45 09/25/19 03:20 Xopenex 1.25 Mg NEB 09/25/19 02:46 1.25 mg ONCE STA Administration Vital Signs: Temp Pulse Resp BP Pulse Ox 09/25/19 02:36 97.1 F L 65 20 149/91 H 96 Discharge Plan Discharge Patient Disposition: ADMITTED INPATIENT Discharge Problem: Acute respiratory failure, COPD (chronic obstructive pulmonary disease) Prescriptions: No Action citalopram [Celexa] 20 MG tablet 20 mg PO BEDTIME Qty: 30 RF: 3 haloperidol 5 MG tablet 5 mg PO BEDTIME Qty: 60 RF: 3 albuterol sulfate [Ventolin HFA] 18 GM HFA aerosol inhaler 18 g inhalation DIRECTED PRN (Reason: Wheezing) RF: 0 Symbicort 1 PUFF HFA aerosol inhaler 2 puff inhalation BID RF: 0 lisinopril 20 MG tablet 20 mg PO BID Qty: 20 RF: 0 ED Provider: RIGO DOMINGUEZ Condition: Fair
[2019-09-25] MEDS: SOLU-MEDROL 40 MG IVP SCH ×4 (05:36→21:38)
[2019-09-25] MEDS: DUONEB NEB SCH ×4 (06:00→20:10)
[2019-09-25] MEDS: ZESTRIL PO SCH ×2 (08:15→20:03)
[2019-09-25] MEDS: SYMBICORT 160-4.5 MCG INHALER IH SCH ×2 (08:19→20:02)
[2019-09-25] MEDS: CELEXA PO SCH (20:03)
[2019-09-25] MEDS: HALOPERIDOL 5 MG PO SCH (20:04)
[2019-09-25] MEDS: TYLENOL PO PRN (21:39)
[2019-09-26] MEDS: SOLU-MEDROL 40 MG IVP SCH ×3 (04:37→20:47)
[2019-09-26] MEDS: DUONEB NEB SCH ×4 (05:10→19:20)
[2019-09-26] MEDS: SYMBICORT 160-4.5 MCG INHALER IH SCH ×2 (08:54→20:47)
[2019-09-26] MEDS: ZESTRIL PO SCH ×2 (08:54→20:47)
--- NOTE | 2019-09-26 09:52 | HP ---
DISCUSSION: 54 year old gentleman with history of obesity and COPD. He presented to the emergency department with shortness of breaths. For the past week he has had increasing shortness of breath associated with cough productive of a thick brown sputum. He denies any fever or chills. He is dyspneic with any type of activity including conservation. In the emergency department he was found to have hypoxia with blood gas revealing a pO2 in the 40's. Chest CT was noted to be negative for infiltrate of effusion. His BNP was normal. This patient was thought to have acute respiratory failure thought to be brought on by the exacerbation of COPD and was admitted to my services. PAST MEDICAL HISTORY: MEDICATIONS: Celexa Haldol Albuterol inhaler Symbicort inhaler Lisinopril ALLERGIES: No known drug allergies. PAST MEDICAL HISTORY: History of COPD History of schizophrenia Hypertension PAST SURGICAL HISTORY: Denies any surgeries SOCIAL HISTORY: He is a smoker, one pack per day. Denies any alcohol or illicit drug use. FAMILY HISTORY: Reviewed and thought not to be pertinent to discussion. REVIEW OF SYSTEMS: No headaches, visual changes, tinnitus, chest pain, hemoptysis, abdominal pain, blood in the stool, urinary symptoms or seizures. PHYSICAL EXAMINATION: V/S: Temperature 97.1, pulse 55, respiratory rate 20, blood pressure 149/91. HEENT: Pupils are round. NECK: Supple. CHEST: Decreased breath sounds with expiratory wheezing. CARDIOVASCULAR: Regular rate and rhythm. ABDOMEN: Soft, nontender. Obese. EXTREMITIES: Distal extremities without cyanosis or edema. ASSESSMENT: 1. Acute respiratory failure 2. COPD with exacerbation 3. Hypertension PLAN: 1. Admission with bronchodilators, antibiotics and steroids 2. Please see orders. MTDD
--- NOTE | 2019-09-26 09:57 | PN ---
DATE OF VISIT: 09/25/19 SUBJECTIVE: Butch says that he feels better his shortness of breath better. He is using oxygen now and tolerating it well. His cough has improved. PHYSICAL EXAMINATION: VITALS: Temperature 97.9, pulse 80, respiratory 18, blood pressure 120/80. HEENT: Pupils are round NECK: Supple CHEST: Decreased breath sounds CARDIOVASCULAR: Regular rate and rhythm ABDOMEN: Soft, nontender EXTREMITIES: Distal extremities without cyanosis or edema ASSESSMENT: 1. Acute respiratory failure secondary to COPD exacerbation PLAN: 1. We will continue antibiotics 2. Wean steroids 3. Please see orders. MTDD
--- NOTE | 2019-09-26 10:00 | PN ---
DATE OF VISIT: 09/26/19 SUBJECTIVE: Butch is resting well. No nursing staff concerns. He is tolerating the weaning of the steroids. PHYSICAL EXAMINATION: VITALS: Temperature 98.9, pulse 90, respiratory rate 18, blood pressure 120/80 HEENT: Pupils are round NECK: Supple CHEST: Decreased breath sounds bilateral CARDIOVASCULAR: Regular rate and rhythm ABDOMEN: Soft, nontender. Obese EXTREMITIES: Distal extremities without cyanosis or edema ASSESSMENT: 1. Acute respiratory with COPD exacerbation PLAN: 1. We will continue bronchodilators. Lungs sounds are improved to the point I think we can consider doing home oxygen desaturation to see if he qualifies for home oxygen 2. Please see orders. MTDD
[2019-09-26] MEDS: HALOPERIDOL 5 MG PO SCH (20:47)
[2019-09-26] MEDS: CELEXA PO SCH (20:47)
[2019-09-26] MEDS ORDERED: MYLANTA SUSP PO STA (21:51)
[2019-09-26] MEDS ORDERED: MYLANTA SUSP PO PRN (21:52)
[2019-09-26] MEDS: TYLENOL PO PRN (22:54)
[2019-09-27 05:00] VITALS: TEMP 98.6
[2019-09-27] MEDS: SOLU-MEDROL 40 MG IVP SCH ×2 (05:00→13:04)
[2019-09-27] MEDS: DUONEB NEB SCH ×3 (05:10→14:04)
[2019-09-27] MEDS: SYMBICORT 160-4.5 MCG INHALER IH SCH (09:00)
[2019-09-27] MEDS: ZESTRIL PO SCH (09:00)
[2019-09-27] MEDS: TYLENOL PO PRN ×2 (09:22→15:56)
[2019-09-27 14:34] VITALS: BP 135/69
--- NOTE | 2019-09-28 13:56 | DS ---
DATE OF SERVICE: 09/27/19 PRINCIPAL DIAGNOSIS: 1. ACUTE RESPIRATORY FAILURE SECONDARY TO #2 2. COPD EXACERBATION 3. OBESITY 4. SCHIZOPHRENIA DISCUSSION: This is a 54-year-old gentleman who over the past week has had increasing cough and congestion, cough productive of brownish sputum. He was seen in the emergency room where CTA of the chest was negative for PE. BNP was not conclusive. At this point because blood gases revealed evidence of acute hypoxia with p02 in the 40's. He was admitted to my service with bronchodilators, oxygen and treatment of a COPD exacerbation. CLINICAL COURSE: The patient was admitted. His oxygenation improved with nasal oxygen, neb treatments, steroids and antibiotics. His pulmonary symptoms improved. His cough improved. He was able to ambulate with oxygen. Three-step oxygenation was performed which confirmed continued presence of relative hypoxia but again he tolerated the oxygen well. We did wean the steroids and at time of discharge was ambulatory with the oxygen and Weaving Loom Operator were able to set him up for home oxygen. At this point, the patient was discharged with oxygen 2L/NC 24 hours. He will continue Symbicort inhalers as well as nebulizers. Also, he will continue tapering dose of Prednisone 30 mg for 2 days and 20 mg for 2 days and 10 mg for two days. Also antibiotics, Omnicef 300 mg b.i.d. for 5 days. I will see him in the office in one week. TIME SPENT: More than 60 minutes. SAMMY
== END 2019-09-27 19:10 | disposition home health service (06) | DRG 189 ==
LOC: ED 02:33 → MEDSURG B 04:56
PROVIDERS: ADMIT Family Medicine; ATTEND Family Medicine
DX: R06.2 Wheezing; J06.9 Acute upper respiratory infection, unspecified; R06.02 Shortness of breath; F20.9 Schizophrenia, unspecified; J96.00 Acute respiratory failure, unspecified whether with hypoxia or hypercapnia; R06.00 Dyspnea, unspecified; E66.9 Obesity, unspecified; R05 Cough; I10 Essential (primary) hypertension; J44.1 Chronic obstructive pulmonary disease with (acute) exacerbation

== ENCOUNTER 2019-12-01 18:13 | Inpatient (IN) ==
[2019-12-01 18:21] VITALS: BMI 38.7
[2019-12-01] MEDS ORDERED: DUONEB NEB STA (19:56)
--- NOTE | 2019-12-01 20:05 | ED.PDOC ---
General ED Provider: Dr. TERI COLE Chief Complaint: Cough Stated Complaint: Patient comes to the ER with increasing shortness of breath for the past two days. Also started having chest tightness. Continues to smoke but only smokes 1 cigarette every other day Time Seen by Physician: 19:50 Mode of Arrival: Walk-In Information Source: Patient Exam Limitations: No limitations Primary Care Provider: RIGO MERCADO Nursing and Triage Documentation Reviewed and Agree: Yes Does patient meet sepsis criteria?: No System Inflammatory Response Syndrome: Not Applicable Sepsis Protocol: For patient's 13 years and over: Temp is 96.8 and below OR 101 and greater Pulse >90 BPM Resp >20/minute Acutely Altered Mental Status Are patient's symptoms suggestive of a new infection, such as: -Pneumonia -Skin, Soft Tissue -Endocarditis -UTI -Bone, Joint Infection -Implantable Device -Acute Abdominal Infection -Wound Infection -Meningitis -Blood Stream Catheter Infection -Unknown Respiratory Complaint Exam Shortness of Air Complaint/Exam Onset/Duration: 2 days Symptoms Are: Still present Timing: Constant Initial Severity: Moderate Current Severity: Severe Character: Reports Dyspnea at rest Aggravating: Reports Deep breaths, URI and Weather Alleviating: Reports Bronchodilators and Oxygen Associated Signs and Symptoms: Reports Cough, Wheezing, Chest pain with cough, Chest pain and Labored breathing Related History: Reports Similar episode and Obesity History of Healthcare-Acquired Pneumonia: No Cardiac Risk Factors: Reports Smoking and Hypertension Pseudomonas Risk Factors: Reports Chronic Lung Disease Home Oxygen Use: No Recent Echo/LV Function: No Respiratory Distress: Mild Stridor Present: No Tracheal Deviation: No Subcutaneous Emphysema: No Accessory Muscle Use: Yes Diminished Breath Sounds: Yes Prolonged Expiratory Phase: No Unable to Speak Full Sentences: No Fatigue: No Leg Swelling: No Saranya's Sign Present: No Grunting Respirations: No Kussmaul Respirations: No Differential Diagnoses: Asthma, Pneumonia and Bronchitis Quality Indicators for AMI: EKG in 10min. Quality Indicator For Non-Traumatic Chest Pain/Syncope: EKG Performed Review of Systems Review Of Systems Constitutional: Reports No symptoms Eyes: Reports No symptoms Ears, Nose, Mouth, Throat: Reports No symptoms Respiratory: Reports Cough (White yellow ), Short of air and Wheezing Cardiac: Reports Chest pain (Tightness ) GI: Reports No symptoms : Reports No symptoms Musculoskeletal: Reports No symptoms Skin: Reports No symptoms Neurological: Reports No symptoms Endocrine: Reports No symptoms Hematologic/Lymphatic: Reports No symptoms All Other Systems: Reviewed and Negative [facility] Medical History (Updated 12/01/19 @ 23:00 by TERI COLE MD) COPD (chronic obstructive pulmonary disease) (Acute) Depression (Acute) GERD (gastroesophageal reflux disease) (Acute) H/O hernia repair (Acute) Hypertension (Acute) Schizo-affective schizophrenia (Acute) Family History (Updated 09/25/19 @ 05:49 by NAHUN CANALES, RN) Father Myocardial infarct Social History (Updated 09/25/19 @ 05:48 by NAHUN CANALES RN) Smoking and tobacco status: Current some day smoker Tobacco type: cigarettes Smokeless tobacco user: snuff Alcohol intake: current Alcohol intake frequency: a few times a month Alcohol type: beer Substance use type: marijuana Counseling given: No Household members: family Housing: house Lives independently: Yes Highest education level completed: high school graduate Financial difficulty paying for basics: not very hard service: No Do you think of yourself as: straight/heterosexual Current gender identity: male Seatbelt use: always Current diet type/program: regular Well-balanced diet: rarely Caffeine: Yes Water heater temperature set < 120 degrees: Yes Working smoke detector in home: Yes Fire extinguisher in home: Yes Carbon monoxide detector in home: Yes Firearms in home: No Physical Exam Physical Exam Appearance: Reports Ill-appearing and Obese Ill-appearing: Moderate Pain Distress: Moderate Eyes: Reports JORGE LUIS and EOMI ENT: Reports Nose normal Respiratory: Reports Wheezes Interpretation Radiology Interpretation Radiology Interpretation By: Radiologist Radiology Results: Positive Exam Interpreted: CXR (atelectais and or basilar pneumonia ) Re-Evaluation Re-Evaluation Time of Re-Evaluation: 21:35 Status: Improved (only slightly) Vital Signs Stable: Yes Physician Notification Case Discussed Physician Notified: Dr Mercado Time of Notification: 22:50 Critical Care Note Critical Care Note Total Time (mins): 45 Course Course Hematology/Chemistry: 12/01/19 20:00 12/01/19 20:00 Orders, Labs, Meds: Lab Review 12/01/19 12/01/19 12/01/19 19:56 20:00 20:00 WBC 7.56 RBC 4.74 Hgb 14.6 Hct 43.2 MCV 91.1 MCH 30.8 MCHC 33.8 RDW Coeff of Kamila 12.9 Plt Count 264 Immature Gran % (Auto) 0.3 Neut % (Auto) 62.1 Lymph % (Auto) 27.9 [place] % (Auto) 6.6 Eos % (Auto) 2.0 Baso % (Auto) 1.1 Immature Gran # (Auto) 0.0 Neut # (Auto) 4.7 Lymph # (Auto) 2.1 [place] # (Auto) 0.5 Eos # (Auto) 0.2 Baso # (Auto) 0.1 D-Dimer (Manual) Puncture Site Lrad O2 Saturation 96.0 ABG pH 7.379 ABG pCO2 45.4 H ABG pO2 85.0 ABG HCO3 26.8 H ABG Total CO2 28 ABG Base Excess 2 Brent Test + FiO2 % 21.0 Sodium 135.8 Potassium 3.91 Chloride 101.2 Carbon Dioxide 27.4 Anion Gap 11.11 BUN 7.2 L Creatinine 1.20 H Estimated GFR (MDRD) 63.00 BUN/Creatinine Ratio 6.00 Glucose 96.3 Lactic Acid Calcium 9.41 Total Bilirubin 0.44 AST 23.9 ALT 17.3 Alkaline Phosphatase 100.7 Total Creatine Kinase 148.9 CK-MB (CK-2) 0.793 CK-MB (CK-2) % 0.5300 Troponin I < 0.012 Total Protein 7.29 Albumin 4.23 Globulin 3.06 Albumin/Globulin Ratio 1.38 Procalcitonin Influ A Molecular Assay Influ B Molecular Assay 12/01/19 12/01/19 12/01/19 20:00 20:00 20:00 WBC RBC Hgb Hct MCV MCH MCHC RDW Coeff of Kamila Plt Count Immature Gran % (Auto) Neut % (Auto) Lymph % (Auto) [place] % (Auto) Eos % (Auto) Baso % (Auto) Immature Gran # (Auto) Neut # (Auto) Lymph # (Auto) [place] # (Auto) Eos # (Auto) Baso # (Auto) D-Dimer (Manual) 529.75 Puncture Site O2 Saturation ABG pH ABG pCO2 ABG pO2 ABG HCO3 ABG Total CO2 ABG Base Excess Brent Test FiO2 % Sodium Potassium Chloride Carbon Dioxide Anion Gap BUN Creatinine Estimated GFR (MDRD) BUN/Creatinine Ratio Glucose Lactic Acid 1.28 Calcium Total Bilirubin AST ALT Alkaline Phosphatase Total Creatine Kinase CK-MB (CK-2) CK-MB (CK-2) % Troponin I Total Protein Albumin Globulin Albumin/Globulin Ratio Procalcitonin < 0.05 Influ A Molecular Assay Influ B Molecular Assay 12/01/19 20:50 WBC RBC Hgb Hct MCV MCH MCHC RDW Coeff of Kamila Plt Count Immature Gran % (Auto) Neut % (Auto) Lymph % (Auto) [place] % (Auto) Eos % (Auto) Baso % (Auto) Immature Gran # (Auto) Neut # (Auto) Lymph # (Auto) [place] # (Auto) Eos # (Auto) Baso # (Auto) D-Dimer (Manual) Puncture Site O2 Saturation ABG pH ABG pCO2 ABG pO2 ABG HCO3 ABG Total CO2 ABG Base Excess Brent Test FiO2 % Sodium Potassium Chloride Carbon Dioxide Anion Gap BUN Creatinine Estimated GFR (MDRD) BUN/Creatinine Ratio Glucose Lactic Acid Calcium Total Bilirubin AST ALT Alkaline Phosphatase Total Creatine Kinase CK-MB (CK-2) CK-MB (CK-2) % Troponin I Total Protein Albumin Globulin Albumin/Globulin Ratio Procalcitonin Influ A Molecular Assay Negative by naat Influ B Molecular Assay Negative by naat Orders Category Date Time Status ABG DRAW REQUEST Stat CARDIO 12/01/19 19:57 Completed EKG-(ED ONLY) Stat CARDIO 12/01/19 19:56 Completed NEBULIZER TREATMENT Stat CARDIO 12/01/19 19:57 Completed NEBULIZER TREATMENT Stat CARDIO 12/01/19 22:22 Ordered ED IV/MEDIPORT/POWERPORT .ONCE EMERGENCY 12/01/19 19:56 Active ABG Stat LAB 12/01/19 19:56 Completed BLOOD CULTURE (ED ONLY) Stat LAB 12/01/19 20:00 Received CBC W/ AUTO DIFF Stat LAB 12/01/19 20:00 Completed COMPREHENSIVE METABOLIC PANEL Stat LAB 12/01/19 20:00 Completed CREATINE KINASE Stat LAB 12/01/19 20:00 Completed D-DIMER Stat LAB 12/01/19 20:00 Completed FLU A/B MOLECULAR Stat LAB 12/01/19 20:50 Completed LACTIC ACID Stat LAB 12/01/19 20:00 Completed PROCALCITONIN Stat LAB 12/01/19 20:00 Completed TROPONIN I Stat LAB 12/01/19 20:00 Completed 0.9 % Sodium Chloride [Saline Flush] MEDS 12/01/19 19:56 Active 1 syr IVF PRN PRN Azithromycin Inj [Zithromax] 500 mg MEDS 02/13/20 21:38 Active 0.9 % Sodium Chloride [Sodium Chloride] 250 ml IV ONCE Ceftriaxone 1 gm Vial [Rocephin 1 gm Vial] MEDS 12/01/19 21:12 Discontinued 1 gm IM ONCE STA Ipratropium/Albuterol Neb [Duoneb] MEDS 12/01/19 19:56 Discontinued 3 ml NEB ONCE STA Levalbuterol HCl [Xopenex 1.25 mg] MEDS 12/01/19 22:21 Discontinued 1.25 mg NEB ONCE STA Lidocaine HCl/Pf [Lidocaine HCl 1% Sdv] MEDS 12/01/19 21:12 Discontinued 2.1 ml IM ONCE STA Methylprednisolone Sod Succ/Pf [Solu-Medrol 125 mg] MEDS 12/01/19 20:27 Discontinued 125 mg IVP ONCE STA Sodium Chloride 0.9% [Sodium Chloride] 1,000 ml MEDS 12/01/19 21:56 Active IV 125 mls/hr CHEST, 1V AP ONLY Stat RADS 12/01/19 20:05 Completed Medications Generic Name Dose Route Start Last Admin Trade Name Freq PRN Reason Stop Dose Admin Azithromycin 500 mg/ Sodium 250 mls @ 125 mls/hr 12/01/19 21:38 12/01/19 22:41 Chloride IV 12/01/19 23:37 125 mls/hr ONCE STA Administration Sodium Chloride 1,000 mls @ 125 mls/hr 12/01/19 21:56 12/01/19 22:40 Sodium Chloride IV 12/02/19 05:55 125 mls/hr .Q8H STA Administration Sodium Chloride 1 syr 12/01/19 19:56 12/01/19 20:44 Saline Flush IVF 1 syr PRN PRN Administration To flush IV Discontinued Medications Generic Name Dose Route Start Last Admin Trade Name Freq PRN Reason Stop Dose Admin Albuterol/Ipratropium 3 ml 12/01/19 19:56 12/01/19 20:30 Duoneb NEB 12/01/19 19:57 3 ml ONCE STA Administration Ceftriaxone Sodium 1 gm 12/01/19 21:12 12/01/19 21:27 Rocephin 1 Gm Vial IM 12/01/19 21:13 1 gm ONCE STA Administration Levalbuterol HCl 1.25 mg 12/01/19 22:21 Xopenex 1.25 Mg NEB 12/01/19 22:22 ONCE STA Lidocaine HCl 2.1 ml 12/01/19 21:12 12/01/19 21:27 Lidocaine Hcl 1% Sdv IM 12/01/19 21:13 2.1 ml ONCE STA Administration Methylprednisolone Sodium Succinate 125 mg 12/01/19 20:27 12/01/19 20:42 Solu-Medrol 125 Mg IVP 12/01/19 20:28 125 mg ONCE STA Administration Vital Signs: Temp Pulse Resp BP Pulse Ox 12/01/19 18:13 97.1 F L 101 H 22 148/89 H 94 L Discharge Plan Discharge Patient Disposition: ADMITTED INPATIENT Discharge Problem: Pneumonia Qualifiers: Pneumonia type: due to unspecified organism Laterality: bilateral Lung location: lower lobe of lung Qualified Code(s): J18.9 - Pneumonia, unspecified organism COPD (chronic obstructive pulmonary disease) Qualifiers: COPD type: COPD with acute exacerbation Qualified Code(s): J44.1 - Chronic obstructive pulmonary disease with (acute) exacerbation ED Provider: TERI COLE Condition: Fair
[2019-12-01 20:17] LABS: HEMATOCRIT 43.2 % (42.0-52.0)
[2019-12-01] MEDS ORDERED: SOLU-MEDROL 125 MG IVP STA (20:27)
--- NOTE | 2019-12-01 20:33 | DI ---
Exam: Single view of the chest. Comparison: CT chest performed 09/25/2019. Reason for exam: Short of breath with chest tightness. FINDINGS: No pneumothorax. There is blunting of the left costophrenic angle. The cardiac silhouett e is not enlarged. Mild pulmonary vascular congestion. Patchy airspace opacities in the lung bases. Impression: 1. Blunting of the left costophrenic angle likely atelectasis/pneumonia versus small effusion. 2. Pulmonary vascular congestion with mild basilar atelectasis/pneumonia.
[2019-12-01] MEDS ORDERED: LIDOCAINE HCL 1% SDV IM STA (21:12)
[2019-12-01] MEDS ORDERED: ROCEPHIN 1 GM VIAL IM STA (21:12)
[2019-12-01] MEDS ORDERED: ZITHROMAX 500 MG in SODIUM CHLORIDE 250 ML IV STA (21:38)
[2019-12-01] MEDS ORDERED: SODIUM CHLORIDE 1,000 ML IV STA (21:56)
[2019-12-01] MEDS ORDERED: XOPENEX 1.25 MG NEB STA (22:21)
[2019-12-01] MEDS ORDERED: ZOFRAN 4 MG/2 ML IVP PRN (23:01)
[2019-12-01] MEDS ORDERED: PROAIR HFA (SINGLE PATIENT USE) IH PRN (23:06)
[2019-12-01] MEDS ORDERED: HALDOL PO SCH (23:30)
[2019-12-02] MEDS ORDERED: CELEXA PO ONE (00:45)
[2019-12-02] MEDS: DOXY-100 100 MG in SODIUM CHLORIDE 100 ML IV SCH ×3 (02:37→22:53)
[2019-12-02] MEDS: DUONEB NEB SCH ×4 (04:30→19:25)
[2019-12-02] MEDS: SOLU-MEDROL 40 MG IVP SCH ×3 (04:56→22:12)
[2019-12-02 06:10] LABS: HEMATOCRIT 42.4 % (42.0-52.0)
[2019-12-02] MEDS: ZESTRIL PO SCH ×2 (09:01→21:58)
[2019-12-02] MEDS: SYMBICORT 160-4.5 MCG INHALER IH SCH ×2 (09:01→21:59)
[2019-12-02] MEDS: LOVENOX SUBCUT SCH (09:02)
[2019-12-02] MEDS: SODIUM CHLORIDE 1,000 ML IV SCH (18:33)
[2019-12-02] MEDS ORDERED: CELEXA PO SCH (21:00)
[2019-12-02] MEDS: ROCEPHIN 1 GM/50 ML D5W 1 GM/50 ML BAG IV SCH (21:59)
[2019-12-02] MEDS: CELEXA PO SCH (21:59)
[2019-12-02] MEDS: HALOPERIDOL 5 MG PO SCH (22:06)
[2019-12-02] MEDS: TYLENOL PO PRN (23:25)
[2019-12-03] MEDS: DUONEB NEB SCH ×4 (04:50→19:05)
[2019-12-03] MEDS: SOLU-MEDROL 40 MG IVP SCH ×3 (05:10→21:21)
[2019-12-03 05:56] LABS: HEMATOCRIT 39.8 % (42.0-52.0)
[2019-12-03] MEDS: SYMBICORT 160-4.5 MCG INHALER IH SCH ×2 (08:05→20:38)
[2019-12-03] MEDS: DOXY-100 100 MG in SODIUM CHLORIDE 100 ML IV SCH ×2 (08:06→22:45)
[2019-12-03] MEDS: ZESTRIL PO SCH ×2 (08:06→20:37)
[2019-12-03] MEDS: LOVENOX SUBCUT SCH (08:07)
[2019-12-03] MEDS: SODIUM CHLORIDE 1,000 ML IV SCH ×2 (08:11→08:12)
[2019-12-03] MEDS: TYLENOL PO PRN (18:40)
[2019-12-03] MEDS: ROCEPHIN 1 GM/50 ML D5W 1 GM/50 ML BAG IV SCH (20:35)
[2019-12-03] MEDS: HALOPERIDOL 5 MG PO SCH (20:36)
[2019-12-03] MEDS: CELEXA PO SCH (20:38)
[2019-12-03] MEDS: PHENERGAN WITH CODEINE 6.25/10 MG/5 ML PO PRN (21:21)
[2019-12-04] MEDS: SOLU-MEDROL 40 MG IVP SCH ×3 (04:27→21:06)
[2019-12-04] MEDS: DUONEB NEB SCH ×4 (04:40→19:20)
[2019-12-04] MEDS: DOXY-100 100 MG in SODIUM CHLORIDE 100 ML IV SCH ×2 (09:26→21:06)
[2019-12-04] MEDS: SYMBICORT 160-4.5 MCG INHALER IH SCH ×2 (09:26→20:15)
[2019-12-04] MEDS: LOVENOX SUBCUT SCH (09:27)
[2019-12-04] MEDS: ZESTRIL PO SCH ×2 (09:27→20:15)
[2019-12-04] MEDS: PHENERGAN WITH CODEINE 6.25/10 MG/5 ML PO PRN ×2 (14:03→20:15)
[2019-12-04] MEDS: SODIUM CHLORIDE 1,000 ML IV SCH ×2 (16:27)
[2019-12-04] MEDS: HALOPERIDOL 5 MG PO SCH (20:15)
[2019-12-04] MEDS: CELEXA PO SCH (20:15)
[2019-12-04] MEDS: ROCEPHIN 1 GM/50 ML D5W 1 GM/50 ML BAG IV SCH (20:15)
[2019-12-05] MEDS: DUONEB NEB SCH ×4 (05:10→19:25)
[2019-12-05] MEDS: SOLU-MEDROL 40 MG IVP SCH (08:19)
[2019-12-05] MEDS: LOVENOX SUBCUT SCH (08:20)
[2019-12-05] MEDS: ZESTRIL PO SCH (08:20)
[2019-12-05] MEDS: SYMBICORT 160-4.5 MCG INHALER IH SCH (08:20)
--- NOTE | 2019-12-05 09:29 | HP ---
DATE OF ADMISSION: 12/01/19 CHIEF COMPLAINT: "I can't breathe." DISCUSSION: This is a 54-year-old gentleman with history of COPD and chronic respiratory failure who continues to smoke, has had increasing shortness of breath over the past two days. He has had shortness of breath over the past two days associated with cut-off cough productive of mucoid sputum. No fevers, no chills. He was seen in the Emergency Department by Dr. Iyer and thought to have an exacerbation of COPD and Dr. Iyer did not feel that it could be managed as an outpatient and was admitted to my services for evaluation and treatment of his pneumonia. 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 He smokes about 1 to 2 packs of cigarettes per day. Denies any alcohol use. He does admit to occasional use of marijuana cigarettes. FAMILY HISTORY: Reviewed. There is no familial tendancies other than hypertension. REVIEW OF SYSTEMS: No headaches, visual changes, tinnitus. He has had some mild chest pain with cough. No angina symptoms. No hemoptysis, abdominal pain, blood in the stool, urinary symptoms or seizures. PHYSICAL EXAMINATION: V/S: Temperature 97.1, pulse 100, respiratory rate 22, BP 140/89. Oxygen saturation 94%. It is not clear if this is on room air or on his home oxygen. HEENT: Pupils are equal and round. NECK: Supple. CHEST: Decreased breath sounds bilaterally. CARDIOVASCULAR: Regular rate and rhythm. ABDOMEN: Obese. Bowel sounds present. EXTREMITIES: Distal extremities without cyanosis or edema. ASSESSMENT: 1. EXACERBATION OF COPD. 2. TOBACCO USE. 3. SCHIZOPHRENIA. PLAN: 1. Admission. 2. Continue oxygen, steroids, antibiotics. 3. Please see orders. MTDD
--- NOTE | 2019-12-05 09:32 | PN ---
DATE OF VISIT: 12/02/19 SUBJECTIVE: Mr. Jain feels about the same. He still continues to have cough and shortness of breath with any exertion. PHYSICAL EXAMINATION: VITAL SIGNS: Temperature 98.9, pulse 88, BP 140/90. HEENT: Pupils are round. NECK: Supple. CHEST: Lungs with decreased breath sounds bilaterally with occasional scattered rhonchi. CARDIOVASCULAR: Regular rate and rhythm. ABDOMEN: Obese. Bowel sounds positive. EXTREMITIES: Distal extremities without cyanosis or edema. IMPRESSION: 1. COPD EXACERBATION. PLAN: 1. Continue steroids, antibiotics, bronchodilators. 2. Please see orders. MTDD
--- NOTE | 2019-12-05 09:35 | PN ---
DATE OF VISIT: 12/03/19 SUBJECTIVE: Shahab thinks he feels a little bit better with the steroids and antibiotics. He is still short of breath with any minimal exertion. PHYSICAL EXAMINATION: VITAL SIGNS: Temperature 98.9, pulse 80, respirations 18, BP 120/80. HEENT: Pupils are round. NECK: Supple. CHEST: Lungs have decreased breath sounds bilaterally. CARDIOVASCULAR: Regular rate and rhythm. ABDOMEN: Soft, nontender. EXTREMITIES: Distal extremities with trace edema. IMPRESSION: 1. COPD EXACERBATION. PLAN: 1. We are going to continue steroids and bronchodilators. 2. We hope to wean steroids soon. 3. Please see orders. MTDD
--- NOTE | 2019-12-05 09:39 | PN ---
DATE OF VISIT: 12/04/19 SUBJECTIVE: Shahab is feeling better. He notes less cough and congestion. PHYSICAL EXAMINATION: VITAL SIGNS: Temperature 98.9, pulse 80, respiratory rate 20, BP 130/90. HEENT: Pupils are round. NECK: Supple. CHEST: Lungs have scattered rhonchi. CARDIOVASCULAR: Regular rate and rhythm. ABDOMEN: Obese. Bowel sounds positive. Abdomen is nontender. EXTREMITIES: Distal extremities without cyanosis or edema. IMPRESSION: 1. COPD EXACERBATION. PLAN: 1. Will begin to wean steroids. 2. Please see orders. MTDD
--- NOTE | 2019-12-05 09:48 | PN ---
DATE OF VISIT: 12/05/19 SUBJECTIVE: Shahab is finally feeling better, feels like he has "turned the corner" as far as his breathing. REVIEW OF SYSTEMS: Denies any chest pain or hemoptysis. PHYSICAL EXAMINATION: VITAL SIGNS: Temperature 98.9, respiratory rate 20, BP 120/80. HEENT: Pupils are equal and round. NECK: Supple. CHEST: Decreased breath sounds bilaterally. CARDIOVASCULAR: Regular rate and rhythm. ABDOMEN: Obese. Nontender. EXTREMITIES: Distal extremities without cyanosis or edema. IMPRESSION: 1. COPD EXACERBATION. PLAN: 1. Wean steroids. 2. Continue bronchodilators and antibiotics. 3. Please see orders. MTDD
[2019-12-05 14:26] VITALS: BP 132/82; TEMP 98.1
[2019-12-05] MEDS: SODIUM CHLORIDE 1,000 ML IV SCH (18:15)
--- NOTE | 2019-12-06 07:45 | DS ---
DATE OF SERVICE: 12/05/19 PRINCIPAL DIAGNOSIS: 1. CHRONIC RESPIRATORY FAILURE WITH HYPOXIA 2. COPD EXACERBATION DISCUSSION: Mr. Jain is a 54-year-old gentleman who presented to the Emergency Department with acute shortness of breath with cough and congestion. He has had a cough productive of mucoid sputum. Denies any fever or chills. Chest x-ray in the Emergency Department did not reveal any evidence of infiltrate. The ER provider felt the patient needed to be admitted. He does have a history of chronic respiratory failure on home oxygen. CLINICAL COURSE: The patient was admitted to my services, started on IV steroids, bronchodilators as well as antibiotics. His cough and congestion seemed to improve. His shortness of breath improved. We began to wean the steroids which he tolerated well. At time of discharge, he was actually ambulatory without his oxygen. His oximetry was stable. His productive cough had improved and at this point we felt the patient was stable for discharged. He was discharged with a prescription for antibiotics and steroids. He will continue his oxygen as well as his bronchodilators at home. Will see him in the office in one week. SAMMY
== END 2019-12-05 20:25 | disposition home or self-care (01) | DRG 194 ==
LOC: ED 18:13 → MEDSURG A 23:06
PROVIDERS: ADMIT Family Medicine; ATTEND Family Medicine
DX: J96.11 Chronic respiratory failure with hypoxia; I10 Essential (primary) hypertension; R07.89 Other chest pain; F20.9 Schizophrenia, unspecified; F17.210 Nicotine dependence, cigarettes, uncomplicated; R06.02 Shortness of breath; J44.1 Chronic obstructive pulmonary disease with (acute) exacerbation; J18.1 Lobar pneumonia, unspecified organism